=== PATIENT | female | born 1930 | race Caucasian/White ===

== ENCOUNTER 2019-01-10 19:12 | Emergency (ER) | payer MEDICARE, OTHER ==
[2019-01-10 19:43] LABS: ADD MAN DIFF? NO; BASOPHILS % 0.7 % (0.0-2.0); EOSINOPHILS # 0.4 10^3/ul (0.0-0.5); EOSINOPHILS % 5.9 % (0.0-7.0); HEMATOCRIT 37.3 % (37.0-47.0); HEMOGLOBIN 11.5 g/dl (12.0-16.0); LYMPHOCYTES # 1.4 10^3/ul (0.8-2.9); LYMPHOCYTES % 23.2 % (15.0-51.0); MEAN CORPUSCULAR HEMOGLOBIN 28.8 pg (29.0-33.0); MEAN CORPUSCULAR HGB CONC 30.8 g/dl (32.0-37.0); MEAN CORPUSCULAR VOLUME 93.3 fl (82.0-101.0); MEAN PLATELET VOLUME 10.5 fl (7.4-10.4); MONOCYTE # 0.6 10^3/ul (0.3-0.9); MONOCYTES % 10.7 % (0.0-11.0); NEUTROPHIL # 3.5 10^3/ul (1.6-7.5); NEUTROPHILS % 59.2 % (39.0-77.0); PLATELET COUNT 298 10^3/UL (140-415); RED CELL DISTRIBUTION WIDTH 17.2 % (11.5-14.5)
[2019-01-10 20:02] LABS: INR 0.91; PROTIME 12.4 Sec (11.9-14.9)
[2019-01-10 20:03] LABS: PARTIAL THROMBOPLASTIN TIME 25.8 Sec (23.0-35.0)
[2019-01-10 20:06] LABS: ANION GAP 8 (5-13); BLOOD UREA NITROGEN 18 mg/dl (7-20); CALCIUM 9.3 mg/dl (8.4-10.2); CARBON DIOXIDE 21 mmol/L (21-31); CHLORIDE 116 mmol/L (97-110); CHOLESTEROL 175 mg/dl (100-200); CREATININE 1.01 mg/dl (0.44-1.00); GLUCOSE 89 mg/dl (70-220); HDL CHOLESTEROL 57 mg/dl (33-92); LDL CHOLESTEROL,CALCULATED 85 mg/dl; POTASSIUM 3.6 mmol/L (3.5-5.1); SODIUM 145 mmol/L (135-144); TRIGLYCERIDES 165 mg/dl (0-149)
[2019-01-10 20:17] LABS: TROPONIN-I < 0.012 ng/ml (0.000-0.120)
[2019-01-10] MEDS: ALBUTEROL 0.083% (NEB) 2.5 MG/3 ML AMP HHN (20:23)
[2019-01-10] MEDS: IPRATROPIUM (NEB) 0.5 MG/2.5 ML AMP HHN (20:23)
[2019-01-10 20:24] LABS: HEMOGLOBIN A1C 4.9 % (0-5.9)
[2019-01-10] MEDS: ASPIRIN 325 MG TAB PO (21:14)
[2019-01-10] MEDS ORDERED: ONDANSETRON 4 MG INJ IV (21:30)
[2019-01-10] MEDS ORDERED: ACETAMINOPHEN 325 MG TAB PO (21:30)
== END 2019-01-10 22:06 | disposition left against medical advice (07) ==
LOC: E/R 19:12
DX: I63.9 Cerebral infarction, unspecified (principal); I10 Essential (primary) hypertension; R41.82 Altered mental status, unspecified; Z79.82 Long term (current) use of aspirin
CPT/HCPCS: 70450; 71045; 80048; 80061; 82962; 83036; 83605; 84484; 85025; 85610; 85730; 87040-91; 93005; 94664; 99285-25

== ENCOUNTER 2019-01-23 12:35 | Inpatient (IN) | payer MEDICARE, OTHER ==
[2019-01-23 12:56] LABS: ADD MAN DIFF? NO
[2019-01-23 12:57] LABS: WHITE BLOOD COUNT 6.6 10^3/ul (4.8-10.8)
[2019-01-23 12:57] LABS: BASOPHIL # 0.1 10^3/ul (0.0-0.1); BASOPHILS % 0.9 % (0.0-2.0); EOSINOPHILS # 0.3 10^3/ul (0.0-0.5); EOSINOPHILS % 4.1 % (0.0-7.0); HEMATOCRIT 35.4 % (37.0-47.0); HEMOGLOBIN 11.1 g/dl (12.0-16.0); LYMPHOCYTES # 1.2 10^3/ul (0.8-2.9); LYMPHOCYTES % 18.5 % (15.0-51.0); MEAN CORPUSCULAR HEMOGLOBIN 29.2 pg (29.0-33.0); MEAN CORPUSCULAR HGB CONC 31.4 g/dl (32.0-37.0); MEAN CORPUSCULAR VOLUME 93.2 fl (82.0-101.0); MONOCYTE # 0.8 10^3/ul (0.3-0.9); MONOCYTES % 11.8 % (0.0-11.0); NEUTROPHIL # 4.3 10^3/ul (1.6-7.5); NEUTROPHILS % 64.2 % (39.0-77.0); PLATELET COUNT 312 10^3/UL (140-415); RED CELL DISTRIBUTION WIDTH 17.3 % (11.5-14.5)
[2019-01-23] MEDS: ONDANSETRON 4 MG INJ IV (13:05)
[2019-01-23] MEDS: morphine 2 MG INJ IV ×2 (13:06→22:20)
[2019-01-23 13:18] LABS: ALANINE AMINOTRANSFERASE 19 IU/L (13-69); ALBUMIN/GLOBULIN RATIO 0.96; ALKALINE PHOSPHATASE 75 IU/L (42-121); ANION GAP 5 (5-13); ASPARTATE AMINO TRANSFERASE 23 IU/L (15-46); BILIRUBIN,INDIRECT 0.3 mg/dl (0-1.1); BILIRUBIN,TOTAL 0.3 mg/dl (0.2-1.3); BLOOD UREA NITROGEN 14 mg/dl (7-20); CALCIUM 8.7 mg/dl (8.4-10.2); CARBON DIOXIDE 26 mmol/L (21-31); CHLORIDE 114 mmol/L (97-110); CREATININE 0.78 mg/dl (0.44-1.00); GLUCOSE 85 mg/dl (70-220); LIPASE 18 U/L (23-300); POTASSIUM 3.9 mmol/L (3.5-5.1); SODIUM 145 mmol/L (135-144); TOTAL PROTEIN 6.1 g/dl (6.1-8.1)
[2019-01-23 13:22] LABS: INR 1.01; PARTIAL THROMBOPLASTIN TIME 28.3 Sec (23.0-35.0); PROTIME 13.4 Sec (11.9-14.9)
[2019-01-23 13:29] LABS: B-TYPE NATRIURETIC PEPTIDE 786 PG/ML (0-450); TROPONIN-I < 0.012 ng/ml (0.000-0.120)
[2019-01-23] MEDS: ALBUTEROL 0.083% (NEB) 2.5 MG/3 ML AMP NEB (14:46)
[2019-01-23] MEDS: IPRATROPIUM (NEB) 0.5 MG/2.5 ML AMP NEB (14:46)
[2019-01-23] MEDS ORDERED: ACETAMINOPHEN 325 MG TAB PO ×2 (15:00→15:30)
[2019-01-23] MEDS ORDERED: ONDANSETRON 4 MG INJ IV ×2 (15:00→15:30)
[2019-01-23] MEDS: CEFEPIME 1GM/50 ML (PMX) 50 ML IVPB (15:17)
[2019-01-23] MEDS ORDERED: BISACODYL (EC) 5 MG TAB PO (15:30)
[2019-01-23] MEDS ORDERED: NACL 0.9% 3 ML SYG IV (15:30)
[2019-01-23] MEDS ORDERED: HYDROCODONE/APAP (5/325) TAB PO (15:30)
[2019-01-23] MEDS ORDERED: ACETAMINOPHEN 650 MG SUPP PR (15:30)
[2019-01-23] MEDS: VANCOMYCIN 1 GM (PMX) 250 ML IVPB (15:58)
[2019-01-23] MEDS: PANTOPRAZOLE (EC) 40 MG TAB PO (16:49)
[2019-01-23] MEDS: TAMSULOSIN (SR) 0.4 MG CAP PO (16:49)
[2019-01-23] MEDS ORDERED: GUAIFENESIN/DM 5ML CUP PO (17:30)
[2019-01-23] MEDS ORDERED: IBUPROFEN 800 MG TAB PO (17:30)
[2019-01-23] MEDS ORDERED: HYDROCORTISONE 25 MG SUPP PR (17:30)
[2019-01-23 19:37] LABS: PROCALCITONIN 0.06 ng/mL (0.00-0.10)
[2019-01-23] MEDS: SOD CHLORIDE 0.9% 1,000 ML IV (21:58)
[2019-01-23] MEDS: FERROUS FUMARATE (SR) TAB PO (22:14)
[2019-01-23] MEDS: LEVOFLOXACIN 500 MG TAB PO (22:14)
[2019-01-23] MEDS: DOCUSATE CALCIUM 240 MG CAP PO (22:15)
[2019-01-23] MEDS: ATORVASTATIN 20 MG TAB PO (22:15)
[2019-01-24 06:26] LABS: ADD MAN DIFF? NO
[2019-01-24 06:32] LABS: WHITE BLOOD COUNT 6.3 10^3/ul (4.8-10.8)
[2019-01-24 06:32] LABS: BASOPHILS % 0.5 % (0.0-2.0); EOSINOPHILS # 0.3 10^3/ul (0.0-0.5); EOSINOPHILS % 4.5 % (0.0-7.0); HEMATOCRIT 33.4 % (37.0-47.0); HEMOGLOBIN 10.2 g/dl (12.0-16.0); LYMPHOCYTES # 0.8 10^3/ul (0.8-2.9); MEAN CORPUSCULAR HEMOGLOBIN 28.9 pg (29.0-33.0); MEAN CORPUSCULAR HGB CONC 30.5 g/dl (32.0-37.0); MEAN CORPUSCULAR VOLUME 94.6 fl (82.0-101.0); MEAN PLATELET VOLUME 10.5 fl (7.4-10.4); MONOCYTE # 0.6 10^3/ul (0.3-0.9); MONOCYTES % 10.1 % (0.0-11.0); NEUTROPHIL # 4.5 10^3/ul (1.6-7.5); NEUTROPHILS % 71.4 % (39.0-77.0); PLATELET COUNT 295 10^3/UL (140-415); RED BLOOD COUNT 3.53 10^6/ul (4.20-5.40); RED CELL DISTRIBUTION WIDTH 17.9 % (11.5-14.5)
[2019-01-24 06:53] LABS: HEMOGLOBIN A1C 4.9 % (0-5.9)
[2019-01-24] MEDS: SOD CHLORIDE 0.9% 1,000 ML IV ×4 (07:00→21:17)
[2019-01-24 07:04] LABS: IRON 55 ug/dl (35-150)
[2019-01-24 07:06] LABS: ALANINE AMINOTRANSFERASE 22 IU/L (13-69); ALBUMIN 2.5 g/dl (3.3-4.9); ALBUMIN/GLOBULIN RATIO 0.89; ALKALINE PHOSPHATASE 62 IU/L (42-121); ANION GAP 5 (5-13); ASPARTATE AMINO TRANSFERASE 23 IU/L (15-46); BILIRUBIN,INDIRECT 0.3 mg/dl (0-1.1); BILIRUBIN,TOTAL 0.3 mg/dl (0.2-1.3); BLOOD UREA NITROGEN 14 mg/dl (7-20); CALCIUM 8.2 mg/dl (8.4-10.2); CARBON DIOXIDE 26 mmol/L (21-31); CHLORIDE 116 mmol/L (97-110); CREATININE 0.71 mg/dl (0.44-1.00); GLUCOSE 81 mg/dl (70-220); MAGNESIUM 1.8 mg/dl (1.7-2.5); POTASSIUM 3.9 mmol/L (3.5-5.1); SODIUM 147 mmol/L (135-144); TOTAL PROTEIN 5.3 g/dl (6.1-8.1)
[2019-01-24 07:13] LABS: % IRON SATURATION 32 % SAT (22-52); TOTAL IRON BINDING CAPACITY 173 ug/dl (241-421)
[2019-01-24] MEDS: FERROUS FUMARATE (SR) TAB PO ×2 (09:00→15:26)
[2019-01-24] MEDS: TAMSULOSIN (SR) 0.4 MG CAP PO (09:25)
[2019-01-24] MEDS: SENNA/DOCUSATE NA (8.6MG/50MG) TAB PO (09:25)
[2019-01-24] MEDS: LEVOFLOXACIN 500 MG TAB PO (09:26)
[2019-01-24] MEDS: CALCIUM/VITAMIN D (500/200) TAB PO (09:26)
[2019-01-24] MEDS: ASPIRIN (EC) 81 MG TAB PO (09:26)
[2019-01-24] MEDS: MELOXICAM 7.5 MG TAB PO (09:26)
[2019-01-24] MEDS: PANTOPRAZOLE (EC) 40 MG TAB PO (09:26)
[2019-01-24] MEDS: FAMOTIDINE 20 MG TAB PO (09:26)
[2019-01-24] MEDS: FOLIC ACID 1 MG TAB PO (09:27)
[2019-01-24] MEDS: ENOXAPARIN 30 MG/0.3 ML SYG SC (11:17)
[2019-01-24] MEDS ORDERED: ALBUTEROL/IPRATROPIUM (NEB) 3 ML AMP HHN (12:00)
[2019-01-24 14:47] LABS: ADD UMIC YES; UR ASCORBIC ACID NEGATIVE (NEGATIVE); UR BACTERIA FEW /HPF (NONE SEEN); UR BILIRUBIN (Dip) NEGATIVE (NEGATIVE); UR BLOOD (Dip) NEGATIVE (NEGATIVE); UR CLARITY SLIGHTLY CLOUDY (CLEAR); UR COLOR YELLOW (YELLOW); UR GLUCOSE (Dip) NEGATIVE (NEGATIVE); UR KETONES (Dip) NEGATIVE (NEGATIVE); UR LEUKOCYTE ESTERASE (Dip) TRACE Leu/ul (NEGATIVE); UR MUCUS FEW /HPF (NONE SEEN); UR NITRITE (Dip) NEGATIVE (NEGATIVE); UR RBC 1 /HPF (0-5); UR SPECIFIC GRAVITY (Dip) 1.017 (1.003-1.030); UR SQUAMOUS EPITHELIAL CELL FEW /HPF (FEW); UR TOTAL PROTEIN (Dip) NEGATIVE (NEGATIVE); UR UROBILINOGEN (Dip) NEGATIVE (NEGATIVE); UR WBC 30 /HPF (0-5)
[2019-01-24] MEDS: DOCUSATE SODIUM 100 MG CAP PO ×2 (15:25→20:52)
[2019-01-24 15:40] LABS: TROPONIN-I < 0.012 ng/ml (0.000-0.120)
[2019-01-24] MEDS: ATORVASTATIN 20 MG TAB PO (20:52)
[2019-01-24 21:14] LABS: TROPONIN-I < 0.012 ng/ml (0.000-0.120)
[2019-01-25 00:33] LABS: TROPONIN-I < 0.012 ng/ml (0.000-0.120)
[2019-01-25] MEDS: morphine 2 MG INJ IV (05:57)
[2019-01-25] MEDS: SOD CHLORIDE 0.9% 1,000 ML IV ×2 (05:59→17:17)
[2019-01-25 06:31] LABS: ADD MAN DIFF? NO
[2019-01-25 06:44] LABS: BASOPHIL # 0.1 10^3/ul (0.0-0.1); BASOPHILS % 0.6 % (0.0-2.0); EOSINOPHILS # 0.3 10^3/ul (0.0-0.5); EOSINOPHILS % 3.7 % (0.0-7.0); HEMATOCRIT 37.2 % (37.0-47.0); HEMOGLOBIN 11.4 g/dl (12.0-16.0); LYMPHOCYTES % 11.6 % (15.0-51.0); MEAN CORPUSCULAR HGB CONC 30.6 g/dl (32.0-37.0); MEAN CORPUSCULAR VOLUME 94.7 fl (82.0-101.0); MEAN PLATELET VOLUME 10.3 fl (7.4-10.4); MONOCYTES % 10.9 % (0.0-11.0); NEUTROPHIL # 6.5 10^3/ul (1.6-7.5); NEUTROPHILS % 72.5 % (39.0-77.0); PLATELET COUNT 318 10^3/UL (140-415); RED BLOOD COUNT 3.93 10^6/ul (4.20-5.40); RED CELL DISTRIBUTION WIDTH 17.3 % (11.5-14.5)
[2019-01-25 06:44] LABS: WHITE BLOOD COUNT 8.9 10^3/ul (4.8-10.8)
[2019-01-25 07:04] LABS: ANION GAP 5 (5-13); BLOOD UREA NITROGEN 10 mg/dl (7-20); CALCIUM 8.6 mg/dl (8.4-10.2); CARBON DIOXIDE 24 mmol/L (21-31); CHLORIDE 116 mmol/L (97-110); CREATININE 0.66 mg/dl (0.44-1.00); GLUCOSE 100 mg/dl (70-220); POTASSIUM 3.5 mmol/L (3.5-5.1); SODIUM 145 mmol/L (135-144)
[2019-01-25 07:08] LABS: PHOSPHORUS 2.4 mg/dl (2.5-4.9)
[2019-01-25 07:08] LABS: MAGNESIUM 1.7 mg/dl (1.7-2.5)
[2019-01-25] MEDS: FERROUS FUMARATE (SR) TAB PO (08:12)
[2019-01-25] MEDS: TAMSULOSIN (SR) 0.4 MG CAP PO (08:12)
[2019-01-25] MEDS: CALCIUM/VITAMIN D (500/200) TAB PO (08:12)
[2019-01-25] MEDS: ASPIRIN (EC) 81 MG TAB PO (08:12)
[2019-01-25] MEDS: FAMOTIDINE 20 MG TAB PO (08:13)
[2019-01-25] MEDS: LEVOFLOXACIN 500 MG TAB PO (08:13)
[2019-01-25] MEDS: SENNA/DOCUSATE NA (8.6MG/50MG) TAB PO (08:13)
[2019-01-25] MEDS: FOLIC ACID 1 MG TAB PO (08:13)
[2019-01-25] MEDS: PANTOPRAZOLE (EC) 40 MG TAB PO (08:13)
[2019-01-25] MEDS: MELOXICAM 7.5 MG TAB PO (08:13)
[2019-01-25] MEDS: DOCUSATE SODIUM 100 MG CAP PO (08:14)
[2019-01-25] MEDS: ENOXAPARIN 30 MG/0.3 ML SYG SC (09:46)
[2019-01-25] MEDS ORDERED: hydrALAzine 20 MG INJ IV (12:30)
[2019-01-25] MEDS: POTASSIUM PHOSPHATE 20 MEQ in SOD CHLORIDE 0.9% 250 ML IVPB (13:43)
== END 2019-01-25 17:18 | disposition home health service (06) | DRG 313 ==
LOC: E/R 12:35 → TEL 14:53
DX: R07.89 Other chest pain (principal); N39.0 Urinary tract infection, site not specified; E66.9 Obesity, unspecified; Z68.34 Body mass index [BMI] 34.0-34.9, adult; I10 Essential (primary) hypertension; M81.0 Age-related osteoporosis without current pathological fracture; D64.9 Anemia, unspecified; M19.90 Unspecified osteoarthritis, unspecified site; R62.7 Adult failure to thrive; D32.0 Benign neoplasm of cerebral meninges; J06.9 Acute upper respiratory infection, unspecified; Z79.82 Long term (current) use of aspirin
CPT/HCPCS: 36415; 70551; 71045; 71250; 80048; 80053; 81001; 82306; 83036; 83540; 83690; 83735; 83880; 84100; 84145; 84443; 84484; 85025; 85610; 85730; 87040-91; 87086; 93005; 94664; 96374; 96375; 97110; 97161; 97530; 99285-25